=== PATIENT | female | born 1960 | race Caucasian/White ===

== ENCOUNTER 2020-05-20 14:14 | Emergency (ER) | payer OTHER ==
[2020-05-20 14:43] LABS: BASOPHIL 0.9 % (0-2); HCT 37.9 % (37.0-47.0); LYMPHOCYTE 33.8 % (15-48); MCH 31.6 pg (25.0-31.0); MCHC 34.3 g/dL (32.0-36.0); MONOCYTE 12.1 % (0-12); MPV 9.9 fL (6.0-9.5); NEUTROPHIL 50.8 % (41-80); NRBC 0; PLT 352 K/uL (150-400); RBC 4.12 M/uL (4.20-5.40); RDW 13.3 % (11.5-14.0); WBC 10.6 K/uL (4.0-10.5)
[2020-05-20 14:57] LABS: INR 1.05 (0.9-1.2); PTT 29.9 SECONDS (22.2-34.7)
[2020-05-20 15:20] LABS: ALBUMIN 4.3 g/dL (3.4-5.0); BILIRUBIN - TOTAL 0.4 mg/dL (0.2-1.0); BUN/CREAT RATIO (CALC) 12.7 RATIO; CREATININE 0.79 mg/dL (0.51-0.95); GLOBULIN (CALCULATION) 3.4 g/dL; POTASSIUM 3.8 mmol/L (3.5-5.1); TOTAL PROTEIN 7.7 g/dL (6.4-8.2)
[2020-05-20] MEDS ORDERED: MEDROL 4MG DOSEP4 MG PO (17:18)
== END 2020-05-20 17:52 | disposition home or self-care (01) ==
LOC: FER 14:14
PROVIDERS: Emergency Medicine
DX: I24.1 Dressler's syndrome (principal); I25.2 Old myocardial infarction; F17.210 Nicotine dependence, cigarettes, uncomplicated
CPT/HCPCS: 36415; 71045; 80053; 84484; 85025; 85610; 85730; 86140; 93005; J1885

== ENCOUNTER 2020-06-21 17:46 | Day surgery (SDCO) | payer OTHER ==
[~2020-06-21] VITALS: Ht 162.6 cm; Wt 59.1 kg
[~2020-06-21 17:46] MED LIST: MEDROL 4MG DOSEP4 MG PO
[2020-06-21 18:48] LABS: BASOPHIL 0.8 % (0-2); EOSINOPHIL 1.5 % (0-5); HCT 34.3 % (37.0-47.0); HGB 11.5 g/dl (12.5-16.0); LYMPHOCYTE 22.8 % (15-48); MCH 30.7 pg (25.0-31.0); MCHC 33.5 g/dL (32.0-36.0); MCV 91.7 fL (78.0-100.0); MONOCYTE 10.3 % (0-12); MPV 10.1 fL (6.0-9.5); NEUTROPHIL 64.3 % (41-80); NRBC 0; PLT 323 K/uL (150-400); RBC 3.74 M/uL (4.20-5.40); RDW 13.3 % (11.5-14.0); WBC 11.8 K/uL (4.0-10.5)
[2020-06-21 19:09] LABS: ALBUMIN 3.6 g/dL (3.4-5.0); BILIRUBIN - TOTAL 0.3 mg/dL (0.2-1.0); BUN/CREAT RATIO (CALC) 13.9 RATIO; CREATININE 0.79 mg/dL (0.51-0.95); GLOBULIN (CALCULATION) 3.4 g/dL; POTASSIUM 3.6 mmol/L (3.5-5.1)
[2020-06-21 19:16] LABS: INR 1.05 (0.9-1.2); PTT 29.9 SECONDS (22.2-34.7)
[2020-06-21 19:38] LABS: CKMB 1.5 ng/mL (0.0-3.6)
[2020-06-21] MEDS ORDERED: ADULT ASPIRIN R81 MG PO (23:34)
[2020-06-21] MEDS ORDERED: LOPRESSOR25 MG PO (23:35)
[2020-06-21] MEDS ORDERED: LIPITOR40 MG PO (23:35)
[2020-06-21] MEDS ORDERED: BRILINTA90 MG PO (23:36)
[2020-06-22 06:05] LABS: BASOPHIL 0.8 % (0-2); EOSINOPHIL 2.8 % (0-5); HCT 34.2 % (37.0-47.0); HGB 11.2 g/dl (12.5-16.0); LYMPHOCYTE 35.1 % (15-48); MCH 30.4 pg (25.0-31.0); MCHC 32.7 g/dL (32.0-36.0); MCV 92.9 fL (78.0-100.0); MONOCYTE 12.7 % (0-12); MPV 10.3 fL (6.0-9.5); NEUTROPHIL 48.4 % (41-80); NRBC 0; PLT 298 K/uL (150-400); RBC 3.68 M/uL (4.20-5.40); RDW 13.5 % (11.5-14.0); WBC 8.2 K/uL (4.0-10.5)
[2020-06-22 06:23] LABS: ALBUMIN 3.3 g/dL (3.4-5.0); BILIRUBIN - TOTAL 0.4 mg/dL (0.2-1.0); BUN/CREAT RATIO (CALC) 14.1 RATIO; CREATININE 0.78 mg/dL (0.51-0.95); GLOBULIN (CALCULATION) 2.8 g/dL; POTASSIUM 4.1 mmol/L (3.5-5.1); TOTAL PROTEIN 6.1 g/dL (6.4-8.2)
[2020-06-22] MEDS ORDERED: ISOSORBIDE MONO30 MG PO (10:32)
[2020-06-22] MEDS ORDERED: NITROQUIK SL0.4 MG SL (10:32)
== END 2020-06-22 12:28 | disposition home or self-care (01) ==
LOC: FER 17:46 → FTCU 22:01
PROVIDERS: Emergency Medicine; Nurse Practitioner; ADMIT Internal Medicine
DX: I25.119 Atherosclerotic heart disease of native coronary artery with unspecified angina pectoris (principal); I25.2 Old myocardial infarction; I24.1 Dressler's syndrome; M81.0 Age-related osteoporosis without current pathological fracture; J40 Bronchitis, not specified as acute or chronic; Z98.890 Other specified postprocedural states; Z87.891 Personal history of nicotine dependence; Z82.3 Family history of stroke; Z79.899 Other long term (current) drug therapy; Z20.822 Contact with and (suspected) exposure to COVID-19; Z95.828 Presence of other vascular implants and grafts; Z80.1 Family history of malignant neoplasm of trachea, bronchus and lung
CPT/HCPCS: 36415; 71045; 80053; 82553; 84484; 85025; 85610; 85730; 93005; 94762; G0378; J2270; J7030; U0002